=== PATIENT | male | born 1990 | race Caucasian/White ===

== ENCOUNTER 2021-07-13 22:02 | Emergency (ER) | payer SELFPAY ==
[2021-07-13] MEDS ORDERED: diphenhydrAMINE 25 MG CAP ONE (23:06)
[2021-07-13] MEDS ORDERED: Boostrix 0.5 ML (Tdap) VIAL ONE (23:07)
== END 2021-07-13 23:19 | disposition home or self-care (01) ==
LOC: CSHERS 22:02
DX: S50.862A Insect bite (nonvenomous) of left forearm, initial encounter (principal); L03.114 Cellulitis of left upper limb; F17.210 Nicotine dependence, cigarettes, uncomplicated; W57.XXXA Bitten or stung by nonvenomous insect and other nonvenomous arthropods, initial encounter; Z23 Encounter for immunization
CPT/HCPCS: 90471; 90715; 99283